=== PATIENT | female | born 2000 ===

== ENCOUNTER 2023-01-02 13:42 | Emergency (ER) | payer OTHER, SELFPAY ==
[2023-01-02 13:50] VITALS: BP 127/69; PULSE 103; RESP 20; TEMP 36.1; O2SAT 96
--- NOTE | 2023-01-02 14:31 | ED.GENADULT ---
HPI - General Adult General Chief complaint: Upper Respiratory Infection Stated complaint: Shortness of Breath/Asthma/Cough Time Seen by Provider: 01/02/23 14:31 Source: patient, RN notes reviewed and old records reviewed Mode of arrival: ambulatory Limitations: no limitations History of Present Illness HPI narrative: 22 year old female who presents to [facility] care with 2 week duration of increase cough with tightness with breathing and shortness of breath increasing this past week. Patient reports that she has been using her albuterol inhaler frequently the past 2 weeks and needs refill today. Patient reports that she has not had any fevers chills of sweats or any sore throat. Patient reports that for the last week she has had increased dyspnea and wheezing and shortness of breath. Patient states that she does vape and uses tobacco occasionally but has not for the past few days due to her increased dyspnea. Patient reports that she has been using her inhaler frequently. MD complaint: chest tightness, shortness of breath , exacerbation of asthma Onset (ago): week(s) (2) Associated symptoms: cough and shortness of breath Treatments prior to arrival: other (inhaler) Related Data Allergies Allergy/AdvReac Type Severity Reaction Status Date / Time No Known Drug Allergies Allergy Other Verified 11/24/22 12:58 Review of Systems Review of Systems: CONSTITUTIONAL: Denies malaise, chills, sweats, or fever. EYES: Denies visual changes, redness, or discharge. ENT: Reports no rhinorrhea, congestion, sinus pain, otalgia or sore throat. CARDIOVASCULAR: Denies chest pain, states tightness with her breathing,no palpitations, or edema. RESPIRATORY: Reports cough.? Reports dyspnea. GASTROINTESTINAL: Denies abdominal pain, nausea, vomiting, diarrhea SKIN: Denies rash or itching. MUSCULOSKELETAL: Denies myalgia. NEUROLOGIC: Denies headache. All systems reviewed & are unremarkable except as noted in HPI and below PMFSH Past Medical History Medical History (Updated 01/04/23 @ 13:21 by Verena Chirinos NP) Asthma Depression Encounter to establish care Screening for STD (sexually transmitted disease) Vaping nicotine dependence, non-tobacco product Family History Family History Father Alcoholism Asthma Mother Hypertension Depression Anxiety Sibling Anxiety Depression Grandparent Cancer Anxiety Depression Social History Social History (Updated 11/24/22 @ 13:19 by Tri Saenz) Smoking status: Former smoker Tobacco type: cigarettes and e-cigarettes/vaping Alcohol intake: current Substance use: current Substance use type: marijuana Lack of Transportation: No Lack of Food: Never True Current Housing: I Have Housing Concerned About Future Housing: No Difficulty Paying Gas/Electric Bills: No Difficulty Paying for Meds: No Currently Unemployed: No Education: High School Diploma/GED Living arrangements: with roommate(s) Occupation/Education: occupation Gender identity (if verbalized by the patient): Female Sexual Orientation (if Verbalized by the Patient): Bisexual Spiritual care concerns: No Agree to blood products: Yes Comments At time of signature, agree with nursing past medical, surgical, social and family history. There is no relevant family history pertinent to the presenting complaint Exam Narrative: GENERAL: Well-appearing, well-nourished, and in no acute distress. HEAD: Normocephalic EYES: PERRLA, conjunctivae clear ENT: Nares clear, turbinates edematous and erythematous, clear discharge. Mucous membranes moist. TM pearly almanza with dull light reflex bilaterally; no tragal tenderness. Oropharynx erythematous without lesions. Tonsils not enlarged and without exudate, no drooling, no hoarseness, no trismus, uvula midline. NECK: Supple. No lymphadenopathy CHEST: scattered wheezing on auscultat
[2023-01-02] MEDS: ALBUTEROL SULFATE NEB 2.5 MG/3 ML INH INHALATION (15:16)
[2023-01-02] MEDS: IPRATROPIUM BR 0.02% INH SOLN 0.5 MG/2.5 ML VIAL INHALATION (15:16)
[2023-01-02 15:40] VITALS: PULSE 107; RESP 16; O2SAT 97
== END 2023-01-02 15:41 | disposition home or self-care (01) ==
PROVIDERS: Emergency Provider Registered Nurse; PCP Family Medicine
DX: J45.901 Unspecified asthma with (acute) exacerbation (principal); J10.1 Influenza due to other identified influenza virus with other respiratory manifestations; Z87.891 Personal history of nicotine dependence; Z20.822 Contact with and (suspected) exposure to COVID-19
CPT/HCPCS: 87426; 87804; 94640; 99213; C9803; G0463